=== PATIENT | male | born 1995 | race Caucasian/White ===

== ENCOUNTER 2017-03-31 09:56 | Emergency (ER) | payer OTHER ==
[2017-03-31 10:03] VITALS: PULSE 72; TEMP 98.2
--- NOTE | 2017-03-31 11:00 | C.PDOC ---
History Of Present Illness 21 year old male presents to the ED for evaluation of penile pain with some pimples which he noted to the area yesterday. Patient reports slight dysuria and denies fever, chills. Time Seen by Provider: 03/31/17 10:37 Chief Complaint (Nursing): Male Genitourinary History Per: Patient History/Exam Limitations: no limitations Onset/Duration Of Symptoms: Hrs Current Symptoms Are (Timing): Still Present Quality Of Discomfort: "Pain" Associated Symptoms: Urinary Symptoms (dysuria ). denies: Fever, Chills Additional History Per: Patient Past Medical History Reviewed: Historical Data, Nursing Documentation, Vital Signs Vital Signs: Last Vital Signs Temp 98.2 F 03/31/17 10:02 Pulse 72 03/31/17 10:02 Resp 20 03/31/17 10:02 BP 117/73 03/31/17 10:02 Pulse Ox 100 03/31/17 12:21 - Medical History PMH: No Chronic Diseases Surgical History: No Surg Hx - [facility] Procedures CLOSURE SKIN & SUBCUTANEOUS NEC (01/03/13) TETANUS TOXOID ADMINIST (01/03/13) Family History: States: Unknown Family Hx - Social History Hx Alcohol Use: No Hx Substance Use: No - Immunization History Hx Tetanus Toxoid Vaccination: No Hx Influenza Vaccination: No Hx Pneumococcal Vaccination: No Review Of Systems Constitutional: Negative for: Fever, Chills Genitourinary: Positive for: Dysuria, Penile Pain. Negative for: Penile Discharge Physical Exam - Physical Exam Appears: Non-toxic, No Acute Distress Skin: Normal Color, Warm, Dry Head: Atraumatic, Normacephalic Eye(s): bilateral: Normal Inspection Gastrointestinal/Abdominal: Soft, No Tenderness, No Guarding, No Rebound Male Genital: No Testicular Tenderness, No Testicular Swelling, No Scrotal Swelling, Other (penile erythema with mild scaling ) Neurological/Psych: Normal Speech, Normal Cognition Gait: Steady ED Course And Treatment O2 Sat by Pulse Oximetry: 100 (on RA) Pulse Ox Interpretation: Normal Progress Note: Urinalysis and blood glucose ordered. On reassessment, patient is resting comfortably, showing no signs of distress and is stable for discharge. Patient is advised to follow up with his PMD within 1-2 days for further evaluation. Disposition - Disposition Referrals: Eddie Briscoe MD [Staff Provider] - Disposition: HOME/ ROUTINE Disposition Time: 12:24 Condition: STABLE Additional Instructions: Follow up with Urologist within 1-2 days. Return to ED if feel worse. Prescriptions: Cephalexin [cephalexin] 500 mg PO Q6 #28 cap Clotrimazole 1% Cream [Lotrimin 1%] 1 applic TOP BID #1 tube Instructions: [facility] (ED) Forms: [employer] ([place]adian) Print Language: YI - Clinical Impression Clinical Impression: Foreskin inflammation - PA / FLIGHT ATTENDANT/INFLIGHT MANAGER / Resident Statement MD/DO has reviewed & agrees with the documentation as recorded. - Scribe Statement The provider has reviewed the documentation as recorded by the Scribe (Vera Manzano) All medical record entries made by the Scribe were at my direction and personally dictated by me. I have reviewed the chart and agree that the record accurately reflects my personal performance of the history, physical exam, medical decision making, and the department course for this patient. I have also personally directed, reviewed, and agree with the discharge instructions and disposition.
[2017-03-31 11:29] LABS: RBC URINE < 1 /hpf (0-3); URINE BILIRUBIN NEGATIVE (NEGATIVE); URINE BLOOD NEGATIVE (NEGATIVE); URINE COLOR Yellow (YELLOW); URINE GLUCOSE (UA) NORMAL (Normal); URINE KETONE NEGATIVE (NEGATIVE); URINE LEUKOCYTE ESTERASE NEG Leu/uL (Negative); URINE PROTEIN NEGATIVE (NEGATIVE); URINE UROBILINOGEN NORMAL mg/dL (0.2-1.0)
[2017-03-31 12:43] VITALS: BP 116/71; RESP 18
[2017-04-01 09:11] VITALS: O2SAT 100
== END 2017-03-31 12:43 | disposition home or self-care (01) ==
LOC: C.ER 09:56
DX: N48.29 Other inflammatory disorders of penis (principal)

== ENCOUNTER 2018-03-27 12:38 | Emergency (ER) | payer SELFPAY ==
--- NOTE | 2018-03-27 13:01 | C.PDOC ---
History Of Present Illness 22 yr old male w/ hx of gastritis, UTI p/w abdominal pain, started last night after eating, throbbing, feels exactly like previous gastritis. No nausea or vomiting. Diarrhea x1, non bloody, non dark. No recent travel or antibiotics. No new foods or medications. Pt notes that he did not try any medications. He notes pain is worse when he lays down. No chest pain. No trauma. No dysuria, urgency or frequency. No headache, fever, chills or night sweats. No other complaints. Time Seen by Provider: 03/27/18 13:01 Chief Complaint (Nursing): Abdominal Pain History Per: Patient Past Medical History Vital Signs: Last Vital Signs Temp 98.6 F 03/27/18 12:42 Pulse 81 03/27/18 12:42 Resp 18 03/27/18 12:42 BP 114/70 03/27/18 12:42 Pulse Ox 98 03/27/18 13:17 - [facility] Procedures CLOSURE SKIN & SUBCUTANEOUS NEC (01/03/13) TETANUS TOXOID ADMINIST (01/03/13) Family History: States: Unknown Family Hx - Social History Hx Alcohol Use: No Hx Substance Use: No - Immunization History Hx Tetanus Toxoid Vaccination: No Hx Influenza Vaccination: No Hx Pneumococcal Vaccination: No Review Of Systems Constitutional: Negative for: Fever Eyes: Negative for: Pain ENT: Negative for: Ear Pain Cardiovascular: Negative for: Chest Pain, Palpitations, Edema Respiratory: Negative for: Cough Gastrointestinal: Positive for: Abdominal Pain, Diarrhea. Negative for: Nausea , Vomiting, Constipation, Melena, Hematochezia, Hematemesis Genitourinary: Negative for: Dysuria, Frequency, Incontinence, Hematuria, Penile Discharge, Scrotal Pain, Rash Musculoskeletal: Negative for: Neck Pain Skin: Negative for: Rash Neurological: Negative for: Weakness, Numbness Physical Exam - Physical Exam Appears: Well, No Acute Distress Skin: Normal Color, Warm, Dry Head: Atraumatic, Normacephalic Eye(s): bilateral: Normal Inspection, PERRL, EOMI Ear(s): Bilateral: Normal Nose: Normal Throat: Normal, No Erythema, No Exudate Neck: Normal Cardiovascular: Rhythm Regular Respiratory: Normal Breath Sounds Gastrointestinal/Abdominal: No Bowel Sounds, Soft, Tenderness (epigastric), No Organomegaly, No Mass, No Distention, No Guarding, No Rebound, No Hernia, No Ascites Back: Normal Inspection, No CVA Tenderness Extremity: Normal ROM Neurological/Psych: Oriented x3, Normal Speech, Normal Cognition Gait: Steady ED Course And Treatment - Laboratory Results Result Diagrams: 03/27/18 14:10 03/27/18 14:10 O2 Sat by Pulse Oximetry: 98 Medical Decision Making Medical Decision Makin yr old male w/ hx of gastritis p/w epigastric pain and diarrhea. Well appearing, NAD with good vitals. Benign abdominal exam. No recent travel or abx. No LLQ or RLQ pain. No trauma. No dark or bloody stool. Given hx of gastritis and similiar symptoms will seek labs, pain control and reassessment. 1317 labs and rx ordered. 1503 labs unremarkable, reassessed abdomen non-tender w/ out rebound signs pain improved, clear for d/c home Disposition - Disposition Disposition Time: 15:04 Condition: GOOD Forms: [employer] ([place]er) - Clinical Impression Clinical Impression: Gastroenteritis
[2018-03-27] MEDS ORDERED: Sodium Chloride 0.9% 1,000 ML IV ONE (13:02)
[2018-03-27] MEDS ORDERED: Aluminum Hydroxide/Magnesium Hydroxide Susp (30 mL) PO ONE (13:10)
[2018-03-27] MEDS ORDERED: Alum-Mag Hydrox-Simethicone Susp (30 mL) ONE (13:42)
[2018-03-27 14:15] LABS: VENOUS BLOOD GAS BASE EXCESS 2.8 mmol/L (0.0-2.0); VENOUS BLOOD GAS PCO2 57 mmHg (40-60); VENOUS BLOOD GAS PO2 20 mm/Hg (30-55); VENOUS BLOOD PH 7.33 (7.32-7.43)
[2018-03-27 14:19] LABS: BASO % 0.5 % (0.0-2.0); EOS # 0.4 K/uL (0.0-0.7); EOS % 5.1 % (0.0-4.0); HEMOGLOBIN 15.7 g/dL (12.0-18.0); LYMPH # 1.4 K/uL (1.0-4.3); MEAN CELL VOLUME 84.5 fL (80.0-94.0); MEAN CORPUSCULAR HEMOGLOBIN 29.4 pg (27.0-31.0); MEAN CORPUSCULAR HGB CONC 34.8 g/dL (33.0-37.0); MEAN PLATELET VOLUME 8.4 fL (7.2-11.7); MONO # 0.9 K/uL (0.0-0.8); MONO % 12.1 % (0.0-10.0); NEUT # 4.8 K/uL (1.8-7.0); NEUT % 63.3 % (50.0-75.0); NRBC % 0.2 % (0.0-2.0); RBC 5.34 Mil/uL (4.40-5.90); RED CELL DISTRIBUTION WIDTH 12.9 % (11.5-14.5); WHITE BLOOD COUNT 7.6 K/uL (4.8-10.8)
[2018-03-27 14:21] LABS: SQUAMOUS EPITHIAL < 1 /hpf (0-5); URINE BILIRUBIN NEGATIVE (NEGATIVE); URINE BLOOD NEGATIVE (NEGATIVE); URINE CLARITY Clear (Clear); URINE COLOR Yellow (YELLOW); URINE GLUCOSE (UA) NORMAL (Normal); URINE LEUKOCYTE ESTERASE NEG Leu/uL (Negative); URINE PROTEIN NEGATIVE (NEGATIVE); URINE UROBILINOGEN NORMAL mg/dL (0.2-1.0)
[2018-03-27 14:26] LABS: ALB/GLOB RATIO 1.5 (1.0-2.1); ALBUMIN 4.8 g/dL (3.5-5.0); ALT/SGPT 38 U/L (21-72); AST/SGOT 24 U/L (17-59); BLOOD UREA NITROGEN 13 mg/dL (9-20); CALCIUM 9.8 mg/dl (8.6-10.4); GFR NON-AFRICAN AMERICAN > 60; LIPASE 30 U/L (23-300)
[2018-03-27 15:34] VITALS: BP 109/69; PULSE 76; RESP 17; TEMP 99; O2SAT 99
== END 2018-03-27 15:41 | disposition home or self-care (01) ==
LOC: C.ER 12:38
DX: K52.9 Noninfective gastroenteritis and colitis, unspecified (principal)